=== PATIENT | male | born 1965 | race Caucasian/White ===

== ENCOUNTER 2018-03-17 17:38 | Emergency (ER) | payer OTHER ==
--- OUTSIDE RECORDS SUMMARY | 2018-03-17 17:41 | XMS REPORT | Continuity of Care Document ---
:1965 Author Organization [facility] Care Team Providers Name Role Phone MD Ashlyn, Art Unavailable Unavailable Insurance Providers Payer name Policy type / Coverage Policy ID Covered constitution party ID Policy Joiner type AETNA PPO PRIMARY [id number] AETNA - OPEN CHOICE - NAP (PPO) AETNA - OPEN CHOICE - NAP (PPO) Encounters Encounter Performer Location Date Lab Report Art MD Ashlyn [facility] [place] Oct 17, 2013 Allergies, Adverse Reactions, Alerts Type Substance Reaction Status Drug allergy DEMEROL Active Drug allergy SULFA Active Problems Problem Effective Dates Problem Status HYPERTENSION Active MALIGNANT HYPERTHERMIA Active HYPERLIPIDEMIA Active HEALTH SCREENING Feb 09, 2012 Active ALLERGIC RHINITIS Mar 11, 2012 Active LONG-TERM (CURRENT) USE OF OTHER MEDICATIONS Jun 16, 2013 Active Procedures Date Description Comments Feb 09, 2012 smoking status never smoker Medications Medication Instructions Start Date Status CRESTOR 20 MG TABS 1 PO daily Active LISINOPRIL 20 MG TABS 1 PO daily Inactive LISINOPRIL-HYDROCHLOROTHIAZIDE 1 PO once daily for blood Nov 11, 2011 Active 20-12.5 MG TABS pressure QNASL 80 MCG/ACT AERS USE 2 SPRAYS IN EACH NOSTRIL QD Active NORVASC 2.5 MG TABS 1 PO once daily for blood Dec 19, 2012 Active pressure Vital Signs Date Description Test Result Feb 09, 2012 height E&M HEIGHT 73.5 in Feb 09, 2012 weight E&M WEIGHT 251 lb Feb 09, 2012 blood pressure, systolic BP SYSTOLIC 120 mm Hg Feb 09, 2012 blood pressure, diastolic BP DIASTOLIC 80 mm Hg Feb 09, 2012 pulse rate E&M PULSE RATE 80 /min Mar 11, 2012 weight E&M WEIGHT 256 lb Mar 11, 2012 temperature E&M TEMPERATURE 97.7 deg f Mar 11, 2012 blood pressure, systolic BP SYSTOLIC 132 mm Hg Mar 11, 2012 blood pressure, diastolic BP DIASTOLIC 84 mm Hg Mar 11, 2012 pulse rate E&M PULSE RATE 68 /min Jun 16, 2013 weight E&M WEIGHT 253 lb Jun 16, 2013 temperature E&M TEMPERATURE 97.9 deg f Jun 16, 2013 pulse rate E&M PULSE RATE 88 /min Jun 16, 2013 blood pressure, systolic BP SYSTOLIC 134 mm Hg Jun 16, 2013 blood pressure, diastolic BP DIASTOLIC 82 mm Hg Jun 16, 2013 respiratory rate E&M RESP RATE 20 /min Results Date Description Test Name Value Reference Interpretation Status Nov 10, cholesterol, serum CHOLESTEROL 160 mg/dl 2011Nov 10, triglyceride, TRIGLYCERIDE 103 mg/dl 2011 serum, fasting Nov 10, HDL cholesterol, HDL 43 mg/dl 2011 serum Nov 10, LDL cholesterol, LDL 96 mg/dl 2011 serum Mar 20, cholesterol, serum CHOLESTEROL 278 mg/dl 2010Mar 20, triglyceride, TRIGLYCERIDE 264 mg/dl 2010 serum, fasting Mar 20, HDL cholesterol, HDL 49 mg/dl 2010 serum Mar 20, LDL cholesterol, LDL 176 mg/dl 2010 serum Feb 10, thyroid TSH 1.38 uIU/mL 2009 stimulating hormone, serum Jan 28, cholesterol, serum CHOLESTEROL 173 mg/dl 2010Jan 28, triglyceride, TRIGLYCERIDE 112 mg/dl 2010 serum, fasting Jan 28, HDL cholesterol, HDL 59 mg/dl 2010 serum Jan 28, LDL cholesterol, LDL 92 mg/dl 2010 serum Sep 12, cholesterol, serum CHOLESTEROL 206 mg/dl 2010Sep 12, triglyceride, TRIGLYCERIDE 127 mg/dl 2010 serum, fasting Sep 12, HDL cholesterol, HDL 46 mg/dl 2010 serum Sep 12, LDL cholesterol, LDL 135 mg/dl 2010 serum
--- OUTSIDE RECORDS SUMMARY | 2018-03-17 17:41 | XMS REPORT | Continuity of Care Document ---
:1965 Author Organization [facility] Care Team Providers Name Role Phone MD Ashlyn, Art Unavailable Unavailable Insurance Providers Payer name Policy type / Coverage Policy ID Covered green party ID Policy Joiner type AETNA PPO PRIMARY [id number] AETNA - OPEN CHOICE - NAP (PPO) AETNA - OPEN CHOICE - NAP (PPO) Encounters Encounter Performer Location Date Office Visit Brian Goldberg MD [facility] Oct Practice Allergies, Adverse Reactions, Alerts Type Substance Reaction Status Drug allergy DEMEROL Active Drug allergy SULFA Active Problems Problem Effective Dates Problem Status HYPERTENSION Active MALIGNANT HYPERTHERMIA Active HYPERLIPIDEMIA Active HEALTH SCREENING Feb 09, 2012 Active ALLERGIC RHINITIS Mar 11, 2012 Active LONG-TERM (CURRENT) USE OF OTHER MEDICATIONS Jun 16, 2013 Active SINUSITIS, ACUTE (SINUS INFECTION) Nov 07, 2013 Active Procedures Date Description Comments Feb 09, 2012 smoking status never smoker Nov 07, 2013 smoking status never smoker Medications Medication Instructions Start Date Status CRESTOR 20 MG TABS 1 PO daily Active LISINOPRIL 20 MG TABS 1 PO daily Inactive AUGMENTIN 875-125 MG TABS 1 tablet PO BID for 10 days Nov 07, 2013 Active LISINOPRIL-HYDROCHLOROTHIAZIDE 1 PO once daily for blood Nov 11, 2011 Active 20-12.5 MG TABS pressure QNASL 80 MCG/ACT AERS USE 2 SPRAYS IN EACH NOSTRIL QD Nov 07, 2013 Active NORVASC 2.5 MG TABS 1 PO once daily for blood Dec 19, 2012 Active pressure Vital Signs Date Description Test Result Feb 09, 2012 height E&M - 8302-2 HEIGHT 73.5 in Feb 09, 2012 weight E&M - 3141-9 WEIGHT 251 lb Feb 09, 2012 blood pressure, systolic - 8480-6 BP SYSTOLIC 120 mm Hg Feb 09, 2012 blood pressure, diastolic - 8462-4 BP DIASTOLIC 80 mm Hg Feb 09, 2012 pulse rate E&M - 8867-4 PULSE RATE 80 /min Mar 11, 2012 weight E&M - 3141-9 WEIGHT 256 lb Mar 11, 2012 temperature E&M TEMPERATURE 97.7 deg f Mar 11, 2012 blood pressure, systolic - 8480-6 BP SYSTOLIC 132 mm Hg Mar 11, 2012 blood pressure, diastolic - 8462-4 BP DIASTOLIC 84 mm Hg Mar 11, 2012 pulse rate E&M - 8867-4 PULSE RATE 68 /min Jun 16, 2013 weight E&M - 3141-9 WEIGHT 253 lb Jun 16, 2013 temperature E&M TEMPERATURE 97.9 deg f Jun 16, 2013 pulse rate E&M - 8867-4 PULSE RATE 88 /min Jun 16, 2013 blood pressure, systolic - 8480-6 BP SYSTOLIC 134 mm Hg Jun 16, 2013 blood pressure, diastolic - 8462-4 BP DIASTOLIC 82 mm Hg Jun 16, 2013 respiratory rate E&M - 9279-1 RESP RATE 20 /min Nov 07, 2013 weight E&M - 3141-9 WEIGHT 252.4 lb Nov 07, 2013 temperature E&M TEMPERATURE 97.5 deg f Nov 07, 2013 pulse rate E&M - 8867-4 PULSE RATE 64 /min Nov 07, 2013 respiratory rate E&M - 9279-1 RESP RATE 16 /min Nov 07, 2013 blood pressure, systolic - 8480-6 BP SYSTOLIC 140 mm Hg Nov 07, 2013 blood pressure, diastolic - 8462-4 BP DIASTOLIC 100 mm Hg Results Date Description Test Name Value Reference [...]
--- OUTSIDE RECORDS SUMMARY | 2018-03-17 17:41 | XMS REPORT | Continuity of Care Document ---
:1965 Author Organization Interface Problems Problem Status Onset Classification Date Comments Source Date Reported SINUSITIS, ACUTE Active 11/08/19 Condition 05/07/2014 Medical 14 Group LONG-TERM USE OF Active 06/17/19 Condition 05/07/2014 Medical OTHER MEDICATIONS 14 Group ALLERGIC RHINITIS Active 03/11/19 Condition 05/07/2014 Medical 13 Group HEALTH SCREENING Active 02/09/20 Condition 05/07/2014 Medical 12 Group HYPERTENSION Active Condition 05/07/2014 Medical Group MALIGNANT Active Condition 05/07/2014 Medical HYPERTHERMIA Group HYPERLIPIDEMIA Active Condition 05/07/2014 Medical Group Medications Medication Details Route Status Patient Ordering Order Source Instructions Provider Date AUGMENTIN 1 tablet PO No Longer 11/08/19 Medical 875-125 MG BID for 10 Active 14 Group TABS days QNASL 80 USE 2 Active 11/08/19 Medical MCG/ACT AERS SPRAYS IN 14 Group EACH NOSTRIL QD NORVASC 2.5 1 PO once Active 12/20/19 Medical MG TABS daily for 13 Group blood pressure LISINOPRIL 20 1 PO daily No Longer 11/11/19 Medical MG TABS Active 12 Group LISINOPRIL-HY 1 PO once Active 11/11/19 Medical DROCHLOROTHIA daily for 12 Group ZIDE 20-12.5 blood MG TABS pressure LISINOPRIL 20 1 PO daily No Longer 11/11/19 Medical MG TABS Active 12 Group LISINOPRIL-HY 1 PO once Active 11/11/19 Medical DROCHLOROTHIA daily for 12 Group ZIDE 20-12.5 blood MG TABS pressure LISINOPRIL 20 1 PO daily No Longer 11/11/19 Medical MG TABS Active 12 Group LISINOPRIL-HY 1 PO once Active 11/11/19 Medical DROCHLOROTHIA daily for 12 Group ZIDE 20-12.5 blood MG TABS pressure LISINOPRIL 20 1 PO daily No Longer 11/11/19 Medical MG TABS Active 12 Group LISINOPRIL-HY 1 PO once Active 11/11/19 Medical DROCHLOROTHIA daily for 12 Group ZIDE 20-12.5 blood MG TABS pressure CRESTOR 20 MG 1 PO daily Active Medical TABS Group QNASL 80 USE 2 Active Medical MCG/ACT AERS SPRAYS IN Group EACH NOSTRIL QD CRESTOR 20 MG 1 PO daily Active Medical TABS Group CRESTOR 20 MG 1 PO daily Active Medical TABS Group Allergies, Adverse Reactions, Alerts Substance Category Reaction Severity Reaction Status Date Comments Source type Reported DEMEROL Drug DEMEROL allergy Medical Group SULFA Drug SULFA allergy Medical Group Immunizations Immunization Date Given Site Status Last Updated Comments Source Results Order Name Results Value Reference Date Interpretation Comments Source Range Chemistry CHOLESTEROL 160 11/10/ MH mg/dl 2011 Medical Group Chemistry TRIGLYCERIDE 103 11/10/ MH mg/dl 2011 Medical Group Chemistry HDL 43 11/10/ MH mg/dl 2011 Medical Group Chemistry LDL 96 11/10/ MH mg/dl 2011 Medical Group Chemistry CHOLESTEROL 173 // MH mg/dl 2010 Medical Group Chemistry TRIGLYCERIDE 112 // MH mg/dl 2010 Medical Group Chemistry HDL 59 12/07/ MH mg/dl 2010 Medical Group Chemistry LDL 92 // MH mg/dl 2010 Medical Group Chemistry CHOLESTEROL 206 // MH mg/dl 2010 Medical Group Chemistry TRIGLYCERIDE 127 // MH mg/dl 2010 Medical Group Chemistry HDL 46 /22/ MH mg/dl 2010 Medical Group Chemistry LDL 135 /22/ MH mg/dl 2010 Medical Group Chemistry CHOLESTEROL 278 /27/ MH mg/dl 2010 Medical Group Chemistry TRIGLYCERIDE 264 // MH mg/dl 2010 Medical Group Chemistry HDL 49 // MH mg/dl 2010 Medical Group Chemistry LDL 176 /27/ MH mg/dl 2010 Medical Group Chemistry TSH 1.38 02/10/ MH uIU/mL 2009 Medical Group Vital Signs Vital Sign Value Date Comments Source Weight 244.0 05/07/2014 Medical Group Temperature Oral (F) 97.7 F 05/07/2014 Medical Group Heart Rate 76 05/07/2014 Medical Group Respitory Rate 16 05/07/2014 Medical Group Systolic (mm Hg) 130 05/07/2014 Medical Group Diastolic (mm Hg) 84 05/07/2014 Medical Group Weight 252.4 11/07/2013 Medical Group Temperature Oral (F) 97.5 F 11/07/2013 Medical Group Heart Rate 64 11/07/2013 Medical Group Respitory Rate 16 11/07/2013 Medical Group Systolic (mm Hg) 140 11/07/2013 Medical Group Diastolic (mm Hg) 100 11/07/2013 Medical Group Weight 253 06/16/2013 Medical Group Temperature Oral (F) 97.9 F 06/16/2013 Medical Group Heart Rate 88 06/16/2013 Medical Group Systolic (mm Hg) 134 06/16/2013 Medical Group Diastolic (mm Hg) 82 06/16/2013 Medical Group Respitory Rate 20 06/16/2013 Medical Group Weight 256 03/11/2012 Medical Group Temperature Oral (F) 97.7 F 03/11/2012 Medical Group Systolic (mm Hg) 132 03/11/2012 Medical Group Diastolic (mm Hg) 84 03/11/2012 Medical Group Heart Rate 68 03/11/2012 Medical Group Height 73.5 02/09/2012 Medical Group Weight 251 02/09/2012 Medical Group Systolic (mm Hg) 120 02/09/2012 Medical Group Diastolic (mm Hg) 80 02/09/2012 Medical Group Heart Rate 80 02/09/2012 Medical Group Encounters Location Location Encounter Encounter Reason Attending ADM DC Status Source Details Type Number For Provider Date Date Visit [facility] [id number] Art 06/16 06/16 [place] Medical Visit [address], /2013 Kristen Austin MD [facility] Lab Report [id number] Art 10/17 10/17 [place] [address], /2013 Kristen Peterson MD Group Group - [place] [facility] Office [id number] Art 11/07 11/07 [place] Medical Visit [address], /2013 Kristen Austin MD [facility] [id number] Art 05/07 05/07 [place] Medical Visit 530 Ashlyn, /2014 Kristen Austin MD [facility] Procedures Procedure Code Date Perfomer Comments Source
--- OUTSIDE RECORDS SUMMARY | 2018-03-17 17:41 | XMS REPORT | Continuity of Care Document ---
:1965 Author Organization [facility] Care Team Providers Name Role Phone MD Ashlyn, Art Unavailable Unavailable Insurance Providers Payer name Policy type / Coverage Policy ID Covered alliance party ID Policy Joiner type AETNA PPO PRIMARY [id number] AETNA - OPEN CHOICE - NAP (PPO) AETNA - OPEN CHOICE - NAP (PPO) Encounters Encounter Performer Location Date Office Visit Brian Goldberg MD [facility] Allergies, Adverse Reactions, Alerts Type Substance [...] E&M - 9279-1 RESP RATE 20 /min Results Date Description [...]
--- OUTSIDE RECORDS SUMMARY | 2018-03-17 17:41 | XMS REPORT | Continuity of Care Document ---
:1965 Author Organization [facility] Care Team Providers Name Role Phone MD Ashlyn, Art Unavailable Unavailable Insurance Providers Payer name Policy type / Policy ID Covered republican ID Policy Joiner Coverage type AETNA PPO PRIMARY [id number] AETNA - OPEN CHOICE - NAP (PPO) AETNA - OPEN CHOICE - NAP (PPO) EXAM ONE - [facility] DISA EXAM ONE - [facility] EXAM ONE - [facility] EXAM ONE - [facility] EXAM ONE - [facility] EXAM ONE [facility] EXAM ONE - [facility] Encounters Encounter Performer Location Date Office Visit Brian Goldbegr MD [facility] Apr Practice Allergies, Adverse Reactions, Alerts Type Substance [...] Nov 07, 2013 smoking status never smoker May 07, 2014 smoking status never smoker Medications Medication Instructions Start Date Status CRESTOR 20 MG TABS 1 PO daily Active LISINOPRIL 20 MG TABS 1 PO daily Inactive AUGMENTIN 875-125 MG TABS 1 tablet PO BID for 10 days Nov 07, 2013 Inactive LISINOPRIL-HYDROCHLOROTHIAZIDE 1 PO once daily for [...] RATE 80 /min Mar 11, 2012 weight Kalen&M - 3141-9 WEIGHT 256 lb Mar 11, 2012 temperature E&M TEMPERATURE 97.7 deg f Mar 11, 2012 blood pressure, systolic - 8480-6 BP SYSTOLIC 132 mm Hg Mar 11, 2012 blood pressure, diastolic - 8462-4 BP DIASTOLIC 84 mm Hg Mar 11, 2012 pulse rate E&M - 8867-4 PULSE RATE 68 /min Jun 16, 2013 weight Kalen&M - 3141-9 WEIGHT 253 lb Jun 16, [...] RATE 20 /min Nov 07, 2013 weight Kalen&Ronan - Melinda1-9 WEIGHT 252.4 lb Nov 07, 2013 temperature E&M TEMPERATURE 97.5 deg f Nov 07, 2013 pulse rate E&M - 8867-4 PULSE RATE 64 /min Nov 07, 2013 respiratory rate E&M - 9279-1 RESP RATE 16 /min Nov 07, 2013 blood pressure, systolic - 8480-6 BP SYSTOLIC 140 mm Hg Nov 07, 2013 blood pressure, diastolic - 8462-4 BP DIASTOLIC 100 mm Hg May 07, 2014 weight Kalen&Ronan - Melinda1-9 WEIGHT 244.0 lb May 07, 2014 temperature E&M TEMPERATURE 97.7 deg f May 07, 2014 pulse rate E&M - 8867-4 PULSE RATE 76 /min May 07, 2014 respiratory rate E&M - 9279-1 RESP RATE 16 /min May 07, 2014 blood pressure, systolic - 8480-6 BP SYSTOLIC 130 mm Hg May 07, 2014 blood pressure, diastolic - 8462-4 BP DIASTOLIC 84 mm Hg Results Date Description Test Name [...]
[2018-03-17] MEDS ORDERED: LIDOCAINE 2% MPF 5 ML VIAL ONE (18:19)
[2018-03-17] MEDS ORDERED: FLUORESCEIN SODIUM 0.6 MG/WRAP ONE (18:24)
[2018-03-17] MEDS ORDERED: TETRACAINE HCL 0.5% 2ML OPTH ONE (18:24)
--- NOTE | 2018-03-17 18:36 | RAD REPORT ---
EXAM DESCRIPTION: CT - CTFB CLINICAL HISTORY: injury left eye Trauma to face with pain and swelling. COMPARISON: No comparisons TECHNIQUE: Axial 2 mm thick images of the face were obtained with sagittal and coronal reconstructio n images. All CT scans are performed using dose optimization technique as appropriate and may include automated exposure control or mA/KV adjustment according to patient size. FINDINGS: No acute facial bone fracture is seen.The mandible is intact. The globes and orbital contents are grossly unremarkable.No vitreous abnormality discerned.Mild mucos al thickening of the maxillary antra seen, greater on the left. IMPRESSION: Negative for facial bone fracture. No globe/orbital abnormality.
--- NOTE | 2018-03-17 20:08 | EDPHYS ---
Physician Documentation [facility] Name: Wilner Jaquez Age: 52 yrs Sex: Male : 1965 Arrival Date: 03/17/2018 Time: 17:41 Bed 6 Private MD: None, None ED Physician German Brizuela HPI: 03/17 18:05 This 52 yrs old Male presents to ER via Ambulatory with complaints of Eye cp Injury, Laceration To Nose. 18:05 The patient or guardian reports injury, a laceration. The complaints affect the nose cp and left infraorbital area. 18:05 Context of injury: resulted from running into protruding metal. Onset: The cp symptoms/episode began/occurred just prior to arrival. Associated signs and symptoms: Loss of consciousness: This patient did not experience any loss of consciousness. Historical: - Allergies: 17:48 Sulfa (Sulfonamide Antibiotics); tw2 17:48 Demerol; tw2 - Home Meds: 17:48 lisinopril-hydrochlorothiazide oral oral [Active]; amlodipine oral [Active]; Crestor tw2 oral oral [Active]; - PMHx: 17:48 Hypertension; Hyperlipidemia; malignant hyperthermia; tw2 - Immunization history:: Last tetanus immunization: up to date pt states 2016 was last tetanus. - Social history:: Smoking status: Patient/guardian denies using tobacco. - Ebola Screening: : Patient denies travel to an Ebola-affected area in the 21 days before illness onset. ROS: 18:10 Constitutional: Negative for body aches, chills, fever, poor PO intake. cp 18:10 Eyes: Negative for vision loss. cp 18:10 Cardiovascular: Negative for chest pain. 18:10 Respiratory: Negative for cough, shortness of breath, wheezing. 18:10 Abdomen/GI: Negative for abdominal pain, nausea, vomiting, and diarrhea. 18:10 Skin: Positive for laceration(s), of the bridge of nose and left infraorbital area. 18:10 Neuro: Negative for headache, loss of consciousness, weakness. 18:10 All other systems are negative. Exam: 18:20 Constitutional: The patient appears in no acute distress, alert, awake, cp non-diaphoretic, non-toxic, well developed, well nourished. 18:20 Head/face: Noted is a laceration(s), that is deep, of the nose and left infraorbital, swelling, that is mild, of the nose and left eye. 18:20 Eyes: Pupils: equal, round, and reactive to light and accomodation, Extraocular movements: intact throughout, Conjunctiva: normal, no exudate, no injection, Corneas: abrasion, is not appreciated, foreign body, is not appreciated, a fluorescein strip employed to appreciate the findings, Sclera: no appreciated abnormality, Anterior chamber: normal, no hyphema, Visual rogers: are intact, Examination of the other eye reveals no obvious gross abnormality. 18:20 ENT: External ear(s): are unremarkable, Ear canal(s): are normal, clear, TM's: are normal, Nose: is normal, Mouth: Lips: moist, Oral mucosa: pink and intact, moist, Posterior pharynx: is normal, airway is patent, no erythema, no exudate. 18:20 Neck: C-spine: appears grossly normal, no vertebral tenderness, no crepitus, ROM/movement: is normal, is supple, without pain, no range of motions limitations, no nuchal rigidity. 18:20 Chest/axilla: Inspection: normal, Palpation: is normal, no crepitus, no tenderness. 18:20 Cardiovascular: Rate: normal, Rhythm: regular. 18:20 Respiratory: the patient does not display signs of respiratory distress, Respirations: normal, no use of accessory muscles, no retractions, no splinting, no tachypnea, labored breathing, is not present, Breath sounds: are clear throughout, no decreased breath sounds, no stridor, no wheezing. 18:20 Neuro: Orientation: to person, place \T\ time. Mentation: is normal, Cerebellar function: is grossly normal, Motor: moves all fours, strength is normal, Sensation: is normal, Gait: is steady, at a normal pace, without difficulty. Vital Signs: 17:43 BP 160 / 99; Pulse 89; Resp 18; Temp 98.2(O); Pulse Ox 100% on R/A; Weight 113.4 kg tw2 (R); Height 6 ft. 2 in. (187.96 cm); Pain 7/10; 20:00 BP 150 / 60; Pulse 80; Resp 18; Pulse Ox 99% ; ea 17:43 Body Mass Index 32.10 (113.40 kg, 187.96 cm) tw2 Jigna Coma Score: 18:05 Eye Response: spontaneous(4). Verbal Response: oriented(5). Motor Response: obeys cp commands(6). Total: 15. Visual Acuity: 19:58 Left Eye Visual acuity 20/20, ; Right Eye Visual acuity 20/25, ; Both Eyes Visual ea acuity 20/20; Without Lenses; Laceration: 20:00 Wound Repair of 1.5cm ( 0.6in ) subcutaneous laceration to bridge of nose. Linear cp shaped.. Distal neuro/vascular/tendon intact. Anesthesia: Wound infiltrated with 2 mls of 1% lidocaine. Wound prep: Moderate cleansing by me, Wound irrigation by me. Skin closed with 3 6-0 Prolene using interrupted sutures and sterile technique. Dressed with Bacitracin. Patient tolerated well. 20:00 Wound Repair of 3.5cm ( 1.4in ) subcutaneous laceration to left infraorbital. Linear cp shaped.. Distal neuro/vascular/tendon intact. Anesthesia: Wound infiltrated with 4 mls of 2% lidocaine. Wound prep: Moderate cleansing by me, Wound irrigation by me. Skin closed with 5 6-0 Prolene using interrupted sutures and sterile technique. Dressed with Bacitracin. Patient tolerated well. MDM: 17:51 Patient medically screened. cp 18:00 Differential diagnosis: Contusion of Hematoma on Laceration of facial fracture, globe cp injury. 20:05 Data reviewed: vital signs, nurses notes, radiologic studies, CT scan, and as a result, cp I will discharge patient. 20:05 Counseling: I had a detailed discussion with the patient and/or guardian regarding: the cp historical points, exam findings, and any diagnostic results supporting the discharge/admit diagnosis, radiology results, the need for outpatient follow up, a family practitioner, to return to the emergency department if symptoms worsen or persist or if there are any questions or concerns that arise at home. Response to treatment: the patient's symptoms have markedly improved after treatment. 03/17 18:00 Order name: CT Facial Bones W/O Con; Complete Time: 18:43 cp 03/17 18:43 Interpretation: Report reviewed. cp 03/17 18:00 Order name: Visual Acuity; Complete Time: 20:08 cp 03/17 18:00 Order name: Prolene, Sutures; Complete Time: 18:17 cp 03/17 18:00 Order name: Dressing - Wound; Complete Time: 20:08 cp 03/17 18:00 Order name: Gloves, Sterile; Complete Time: 18:17 cp 03/17 18:00 Order name: Setup Suture Tray; Complete Time: 18:17 cp 03/17 18:13 Order name: Wound Care: please clean and irrigate wound; Complete Time: 18:29 cp 03/17 18:13 Order name: Visual Acuity; Complete Time: 19:58 cp 03/17 18:13 Order name: Eye Tray; Complete Time: 18:16 cp 03/17 18:13 Order name: Fluoresene Opth strip; Complete Time: 18:16 cp 03/17 19:47 Order name: Wound dressing; Complete Time: 19:58 cp Administered Medications: 18:16 Drug: Tetracaine Drops 0.5 % 1 drops Route: Ophthalmic; Site: left eye; bp 18:17 Drug: Lidocaine (2 %) 10 ml Volume: 5 ml; Route: Infiltration; bp Disposition: 20:30 Chart complete. cp Disposition: 03/17/18 20:07 Discharged to Home. Impression: Laceration without foreign body of nose, Left Infraorbital laceration. - Condition is Stable. - Discharge Instructions: Facial Laceration, Sutured Wound Care. - Medication Reconciliation Form, Thank You Letter, Antibiotic Education, Prescription Opioid Use form. - Follow up: Private Physician; When: 1 week; Reason: Staple/Suture removal. - Problem is new. - Symptoms have improved. Addendum: 03/24/2018 08:56 Co-signature as Attending Physician, German Brizuela MD I agree with the assessment and k dr plan of care. Signatures: Dispatcher [employer] EDMS German Brizuela MD MD [facility] Talib Warren PA PA cp Lubna Day RN RN tw2 Eva Childs RN RN Rickey Ramirez RN RN bp Corrections: (The following items were deleted from the chart) 03/17 20:13 20:07 03/17/2018 20:07 Discharged to Home. Impression: Laceration without foreign body ea of nose; Left Infraorbital laceration. Condition is Stable. Forms are Medication Reconciliation Form, Thank You Letter, Antibiotic Education, Prescription Opioid Use. Follow up: Private Physician; When: 1 week; Reason: Staple/Suture removal. Problem is new. Symptoms have improved. cp
--- NOTE | 2018-03-17 20:08 | ER ---
Nurse's Notes [facility] Name: Wilner Jaquez Age: 52 yrs Sex: Male : 1965 Arrival Date: 03/17/2018 Time: 17:41 Bed 6 Private MD: None, None Diagnosis: Laceration without foreign body of nose;Left Infraorbital laceration Presentation: 03/17 17:41 Presenting complaint: Patient states: i walk walking around my truck and forgot i had a tw2 piece of new metal in my truck and i just walked into it, it cut my LEFT eye, it was a new piece of metal but i dont think theres any piece, no vision changes. Transition of care: patient was not received from another setting of care. Mechanism of Injury: Laceration sustained. The patient denies any loss of vision. Onset of symptoms was March 17, 2018. Risk Assessment: Do you want to hurt yourself or someone else? Patient reports no desire to harm self or others. Initial Sepsis Screen: Does the patient meet any 2 criteria? No. Patient's initial sepsis screen is negative. Does the patient have a suspected source of infection? No. Patient's initial sepsis screen is negative. Care prior to arrival: None. 17:41 Method Of Arrival: Ambulatory tw2 17:41 Acuity: GINNY 4 tw2 Triage Assessment: 17:48 General: Appears in no apparent distress. Behavior is calm, cooperative, appropriate tw2 for age. Pain: Complains of pain in left eye. EENT: Eyes swelling noted. Historical: - Allergies: 17:48 Sulfa (Sulfonamide Antibiotics); tw2 17:48 Demerol; tw2 - Home Meds: 17:48 lisinopril-hydrochlorothiazide oral oral [Active]; amlodipine oral [Active]; Crestor tw2 oral oral [Active]; - PMHx: 17:48 Hypertension; Hyperlipidemia; malignant hyperthermia; tw2 - Immunization history:: Last tetanus immunization: up to date pt states 2016 was last tetanus. - Social history:: Smoking status: Patient/guardian denies using tobacco. - Ebola Screening: : Patient denies travel to an Ebola-affected area in the 21 days before illness onset. Screenin:41 Abuse screen: Denies threats or abuse. Denies injuries from another. Nutritional bp screening: No deficits noted. Tuberculosis screening: No symptoms or risk factors identified. Fall Risk None identified. Assessment: 18:00 General: Appears in no apparent distress. comfortable, Behavior is calm, cooperative, bp appropriate for age. Pain: Complains of pain in left eye. Neuro: Level of Consciousness is awake, alert, obeys commands, Oriented to person, place, time, situation, Appropriate for age. Cardiovascular: No deficits noted. Respiratory: Airway Respiratory effort is even, unlabored, Respiratory pattern is regular, symmetrical. GI: No signs and/or symptoms were reported involving the gastrointestinal system. : No signs and/or symptoms were reported regarding the genitourinary system. EENT: Sclera/Cornea are reddened in left eyebrow and left eye. Derm: No signs and/or symptoms reported regarding the dermatologic system. 19:40 General: Appears in no apparent distress. Behavior is calm, cooperative, appropriate ea for age. Pain: Denies pain. Neuro: Level of Consciousness is awake, alert, obeys commands, Oriented to person, place, time, situation. Cardiovascular: Patient's skin is warm and dry. Respiratory: Airway is patent Respiratory effort is even, unlabored, Respiratory pattern is regular, symmetrical. GI: No signs and/or symptoms were reported involving the gastrointestinal system. Derm: Skin is pink, warm \T\ dry. lac to nose and under left eye. Injury Description: Laceration sustained to left lower eyelid and bridge of nose is clean. 20:11 Reassessment: Patient and/or family updated on plan of care and expected duration. Pain ea level reassessed. Patient is alert, oriented x 3, equal unlabored respirations, skin warm/dry/pink. Discharge instructions given to patient, verbalized the understanding of isntruction Patient states feeling better. Patient states symptoms have improved. Vital Signs: 17:43 BP 160 / 99; Pulse 89; Resp 18; Temp 98.2(O); Pulse Ox 100% on R/A; Weight 113.4 kg tw2 (R); Height 6 ft. 2 in. (187.96 cm); Pain 7/10; 20:00 BP 150 / 60; Pulse 80; Resp 18; Pulse Ox 99% ; ea 17:43 Body Mass Index 32.10 (113.40 kg, 187.96 cm) tw2 Visual Acuity: 19:58 Left Eye Visual acuity 20/20, ; Right Eye Visual acuity 20/25, ; Both Eyes Visual ea acuity 20/20; Without Lenses; Jigna Coma Score: 18:05 Eye Response: spontaneous(4). Verbal Response: oriented(5). Motor Response: obeys cp commands(6). Total: 15. ED Course: 17:41 Patient arrived in ED. mr 17:41 None, None is Private Physician. mr 17:43 Triage completed. tw2 17:45 Rickey Schwartz, RN is Primary Nurse. bp 17:48 Arm band placed on. tw2 17:51 Talib Warren PA is PHCP. cp 17:51 German Brizuela MD is Attending Physician. cp 18:23 CT completed. Patient tolerated procedure well. Patient moved to CT. Patient moved back sc from CT. 18:26 CT Facial Bones W/O Con In Process Unspecified. EDMS 18:41 Patient has correct armband on for positive identification. Bed in low position. Call bp light in reach. Side rails up X2. Adult w/ patient. 19:59 No provider procedures requiring assistance completed. Patient did not have IV access ea during this emergency room visit. Administered Medications: 18:16 Drug: Tetracaine Drops 0.5 % 1 drops Route: Ophthalmic; Site: left eye; bp 18:17 Drug: Lidocaine (2 %) 10 ml Volume: 5 ml; Route: Infiltration; bp Outcome: 20:07 Discharge ordered by MD. cp 20:12 Discharged to home ambulatory, with significant other. ea 20:12 Condition: improved 20:12 Discharge instructions given to patient, Instructed on discharge instructions, follow up and referral plans. Demonstrated understanding of instructions, follow-up care. 20:13 Patient left the ED. ea Signatures: Dispatcher [employer] [facility] Annita Gould mr Talib Warren PA PA cp Wise, Tara RN RN tw2 José Miguel Yip Elena RN Rickey Calzada ea, RN RN bp
== END 2018-03-17 20:13 | disposition home or self-care (01) ==
LOC: ER 17:38
PROC: 0JQ10ZZ Repair Face Subcutaneous Tissue and Fascia, Open Approach (ICD-10-PCS; principal; 2018-03-17)
DX: S01.21XA Laceration without foreign body of nose, initial encounter (principal); S01.112A Laceration without foreign body of left eyelid and periocular area, initial encounter; S05.12XA Contusion of eyeball and orbital tissues, left eye, initial encounter; Z88.5 Allergy status to narcotic agent; Z88.2 Allergy status to sulfonamides; I10 Essential (primary) hypertension; E78.5 Hyperlipidemia, unspecified
CPT/HCPCS: 70486; 76377; 99284